=== PATIENT | female | born 1990 | race Caucasian/White ===

== ENCOUNTER 2018-09-21 20:37 | Outpatient (CLI) | payer MEDICAID ==
[~2018-09-21] VITALS: Ht 165.1 cm; Wt 67.5 kg
[2018-09-21 21:14] VITALS: BP 108/68; PULSE 83; RESP 15
[2018-09-21] MEDS ORDERED: PREN-19 PO (21:17)
--- NOTE | 2018-09-22 01:12 | PN ---
Triage Information Date/Time September 22, 2018 Reason for visit: Vag spotting / bleeding Weeks of Gestation 23w 4d /Para 3/2 Diabetes: none Hypertention: none Additional information Pt reports a mucousy d/c x 2 days with flecks of blood and vaginal itching. PMHx: none. PSHx: none. POBHx: x 2, ages 2 and 6. NKDA. Objective Vital Signs Date Temp Pulse Resp B/P (MAP) Pulse Ox O2 O2 Flow FiO2 Time Delivery Rate 09/21/18 98.6 83 15 108/68 Room Air 21:14 (81) Heart Rate: 150's Heart Rate Comments Seen on US, not on the tracing. Contractions: None Exam deferred Results/Medications Results 24 hrs Laboratory Tests Test 09/21/18 20:40 Urine Color STRAW Urine Clarity CLEAR Urine pH 5.0 Urine Specific [place] 1.005 Urine Ketones NEGATIVE Urine Nitrite NEGATIVE Urine Bilirubin NEGATIVE Urine Urobilinogen NEGATIVE Urine Leukocyte Esterase NEGATIVE Urine Microscopic RBC 0 Urine Microscopic WBC 0 Urine Hemoglobin 1+ H Urine Glucose NEGATIVE Urine Total Protein NEGATIVE Imaging Results EFW c/w 23w 3d, 593 grams.COMPLETE PLACENTA PREVIA. MELO normal. CX closed 2.5 cm. S1. Breech. Disposition: Discharge Assessment/Plan A: IUP at 23w 4d. Complete placenta previa. Vag infxn. P: As no active bleeding nor contractions pt is to be d/c'ed home. She has an appt at the clinic in a week but was told to call for an earlier appt to evaluate her for a vaginal infection. Pt is to observe strict pelvic rest and avoid any heavy lifting or other strenuous activity. DENG RUBY MD Sep 22, 2018 01:12
--- NOTE | 2018-09-22 05:28 | TRIAGE ---
OB Triage Datetime Report Generated by CPN: 09/22/2018 05:28 Datetime: 09/21/2018 21:55 Pain Assessment Pain Scale: 0 Pain Presence: None/Denies Pain Type: N/A Datetime: 09/21/2018 21:02 Heart Rate FHR Baseline Rate: 145 Monitor Mode: Doppler Comments: Baby audibly active Datetime: 09/21/2018 21:00 Time of Arrival: 09/21/2018 20:30 EGA: 23.3 Arrived By: Wheelchair Arrived From: Home Chief Complaint: c/o mucousy black discharge in am, vaginal itching x 2 days Movement: Present Contractions: Denies/Absent Rupture of Membranes: Denies Vaginal Bleeding: None Vaginal Discharge: Present Recent Sexual Intercouse: Denies Abdominal Trauma: Not Applicable Patient Complaints: Other Additional Patient Complaints: States came from [place] 3 wks ago Time Provider Notified: 09/21/2018 20:53 Provider Notified: Dr Shin Initial Plan: EFM,UA,EFW,CVL Datetime: 09/21/2018 20:49 Vaginal Exam Membrane Status: Intact
== END 2018-09-22 01:05 | disposition home or self-care (01) ==
LOC: OBT 20:37 → L-D 20:38 → OBT 09-22 01:05
PROVIDERS: ATTEND Obstetrics & Gynecology
DX: O44.02 Complete placenta previa NOS or without hemorrhage, second trimester (principal); Z3A.23 23 weeks gestation of pregnancy
CPT/HCPCS: 76815; 76817; 81001; Z7500; G0463

== ENCOUNTER 2018-11-08 07:09 | Inpatient (IN) | payer MEDICAID ==
[~2018-11-08] VITALS: Ht 162.6 cm; Wt 77.0 kg
[~2018-11-08 07:09] MED LIST: PREN-19 PO
--- NOTE | 2018-11-08 07:35 | TRIAGE ---
OB Triage Datetime Report Generated by CPN: 11/08/2018 07:35 Datetime: 11/08/2018 07:31 Maternal Assessment Level of Consciousness: Keenly Alert, Responsive DTR's/Clonus: DTRs 2+; No Clonus Headache: Denies Blurred Vision: No Respiratory Effort: Unlabored; Regular Rhythm; Equal Expansion Breath Sounds, Left: Clear and Equal Breath Sounds, Right: Clear and Equal Nausea/Vomiting: Denies RUQ Epigastric Pain: Denies Facial Edema: None Temperature Route: Axillary Fall Risk Assessment History of Falling: (0) No Secondary Diagnosis: (0) No Ambulatory Aid: (0) Bedrest/Nurse Assist IV Therapy: (0) No Gait: (0) Normal/Bedrest/Immobile Mental Status: (0) Oriented to Own Ability Fall Score: 0 Fall Risk Score Definition: No Risk: No action required Datetime: 11/08/2018 07:00 Time of Arrival: 11/08/2018 07:00 EGA: 30.2 Arrived By: Ambulatory Arrived From: Home Chief Complaint: 2 BLEEDING EPISODES THIS MORNING PT IS KNOWN PREVIA Movement: Present Contractions: Denies/Absent Rupture of Membranes: Denies Vaginal Discharge: Denies Recent Sexual Intercouse: Denies Abdominal Trauma: Not Applicable Patient Complaints: Other Time Provider Notified: 11/08/2018 07:15 Provider Notified: DR FINK Initial Plan: EFM,ALL DR FINK Datetime: 09/22/2018 00:55 Stage of : OB Triage Datetime: 09/22/2018 00:20 Stage of : OB Triage Datetime: 09/21/2018 23:33 Pain Assessment Pain Scale: 0 Pain Presence: None/Denies Pain Type: N/A Datetime: 09/21/2018 21:00 EGA: 23.3
[2018-11-08 07:37] VITALS: Ht 162.6 cm; Wt 77.0 kg
[2018-11-08 07:39] VITALS: BP 106/64; RESP 20
[2018-11-08] MEDS ORDERED: MAGNESIUM SULFATE 4 GM/100 ML 100 ML IV ONE (07:57)
--- NOTE | 2018-11-08 09:22 | HP ---
Date/Time of Note Date/Time of Note DATE: 11/08/18 TIME: 09:20 OB - History Hx of Present Free Text/Dictation 30 weeks IUP with complete previa started bleeding 4 hours before admission. Care: Good Care Ultrasounds: Normal mid trimester US Obstetrical Complications: Other (previa) Medical Complications: None Past Family/Social History * Past Medical, Surgical, Family and Obstetric Histories reviewed from chart. OB Admission Exam Vital Signs Vital Signs Vital Signs Date Temp Pulse Resp B/P (MAP) Pulse Ox O2 O2 Flow FiO2 Time Delivery Rate 11/08/18 20 106/64 Room Air 07:39 (78) Physical Exam HEENT: WNL Heart: Rhythm Normal Lungs: Clear, Equal Abdomen: WNL Extremities: Normal Reflexes: Normal Cervical Dilatation: None Effacement: 0% Station: Ballotable Membranes: Intact Heart Rate: 120's Accelerations: Accelerations Present Decelerations: No Decelerations Varibility: Moderate Contractions on Admission: None Last 72 hours Lab Results CBC & BMP 11/08/18 07:20 OB Assessment/Plan Reason for admission: vaginal bleeding Plan: Expectant Management (magnesium and beta methasone) SHON FINK MD Nov 08, 2018 09:22
[2018-11-08] MEDS: MAGNESIUM SULFATE 20 GM/500 ML 500 ML IV SCH ×2 (10:24→21:14)
[2018-11-08] MEDS: BETAMET NA PHOS/AC(6 MG/ML) 2 ML INJ SYG IM SCH (11:25)
[2018-11-08] MEDS: LACTATED RINGER'S 1,000 ML IV SCH (15:08)
[2018-11-08] MEDS ORDERED: ACETAMINOPHEN 325 MG TAB PO PRN (21:30)
[2018-11-09] MEDS: LACTATED RINGER'S 1,000 ML IV SCH ×3 (04:22→15:51)
[2018-11-09] MEDS: MAGNESIUM SULFATE 20 GM/500 ML 500 ML IV SCH ×2 (08:25→11:17)
--- NOTE | 2018-11-09 09:29 | QN ---
Documentation Comment DOING WELL NO BLEEDING VSS TRACING CATEGORY 1 CPM SECOND BETAMETHASONE TODAY D/C MAG TOMORROW SHON FINK MD Nov 09, 2018 09:29
[2018-11-09] MEDS: BETAMET NA PHOS/AC(6 MG/ML) 2 ML INJ SYG IM SCH (11:21)
[2018-11-09] MEDS: FERROUS SULFATE (EC) 325 MG TAB PO SCH (11:21)
[2018-11-09] MEDS: DOCUSATE SODIUM 100 MG CAP PO SCH (11:21)
[2018-11-09] MEDS: PRENATAL VITAMIN PO SCH (11:21)
[2018-11-10] MEDS: LACTATED RINGER'S 1,000 ML IV SCH ×3 (01:02→21:01)
[2018-11-10] MEDS: MAGNESIUM SULFATE 20 GM/500 ML 500 ML IV SCH (01:05)
[2018-11-10] MEDS: DOCUSATE SODIUM 100 MG CAP PO SCH (09:55)
[2018-11-10] MEDS: PRENATAL VITAMIN PO SCH (09:55)
[2018-11-10] MEDS: FERROUS SULFATE (EC) 325 MG TAB PO SCH (09:55)
--- NOTE | 2018-11-10 12:52 | QN ---
Documentation Comment no complaints no bleeding s/p magensium and beta methasone SHON FINK MD Nov 10, 2018 12:52
[2018-11-11] MEDS: LACTATED RINGER'S 1,000 ML IV SCH (07:25)
[2018-11-11] MEDS: DOCUSATE SODIUM 100 MG CAP PO SCH (08:52)
[2018-11-11] MEDS: PRENATAL VITAMIN PO SCH (08:52)
[2018-11-11] MEDS: FERROUS SULFATE (EC) 325 MG TAB PO SCH (08:52)
[2018-11-11] MEDS: NACL 0.9% 3 ML SYG IV SCH (16:32)
--- NOTE | 2018-11-12 02:14 | PN ---
Date/Time of Note Date/Time of Note DATE: 11/12/18 TIME: 02:10 OB Subjective Subjective Subjective Late entry note. Patient seen on 11/11/2018 patient seen and examined. She states good movement. She denies nausea, vomiting, shortness of breath, chest pain, abdominal pain between contractions, headache, visual changes, vaginal bleeding or LOF. OB Objective Objective Objective General: Patient appears well, alert and oriented, NAD, appropriate mood and affect ABD: gravid, soft, non-tender. Back: No CVA tenderness (B/L) LE: Mild edema. No clubbing, cyanosis, edema, thigh or calf tenderness bilaterally FHT: 130 bpm , moderate variability with acceleration, no deceleration-category I Contractions: None OB Assessment/Plan Other plan: 28 years old -0-0-2 with single intrauterine at 30 weeks and 5 days with a TYSON of 01/15/2019 with complete placenta previa and 2 episodes of vaginal bleeding - FHR: Category I - Contractions: None - Continuous EFM, toco - s/p magnesium sulfate and betamethasone - Cont in house observation DAVIN MEDINA Nov 12, 2018 02:14
--- NOTE | 2018-11-12 08:13 | QN ---
Documentation Comment doing well vss no bleeding spoke with Dr. Ha and we will have her walk tomorrow for 2-3 hours and if no bleeding will go home. If she bleeds will stay till 36 weeks explained to patient SHON FINK MD Nov 12, 2018 08:13
[2018-11-12] MEDS: FERROUS SULFATE (EC) 325 MG TAB PO SCH (09:21)
[2018-11-12] MEDS: DOCUSATE SODIUM 100 MG CAP PO SCH (09:21)
[2018-11-12] MEDS: PRENATAL VITAMIN PO SCH (09:21)
[2018-11-12] MEDS: NACL 0.9% 3 ML SYG IV SCH (09:25)
--- NOTE | 2018-11-12 15:23 | CONS ---
Assessment/Plan Assessment/Plan Hospital Course (Demo Recall) I have spoken to the mother with the help of an drainlayer and explained the about problems with 30 to 31-week gestational age premature baby, survival greater than 90% based on when the baby is delivered, risk of respiratory distress syndrome, ventilatory assistance, oxygen therapy, chronic lung disease and oxygen dependency, intercurrent infections, treatment with antibiotics, intraventricular hemorrhage, long-term neurodevelopmental problems with delayed milestones, feeding problems, low intelligence, school problems, cerebral palsy and special developmental follow-up needed after discharge, feeding problems with slow feeding, necrotizing enterocolitis, gastroesophageal reflux and general procedures done in NICU and general treatment plan and answered mother's questions and addressed her concerns. Mom seems to understand the problems related to prematurity and had appropriate questions and concerns that were addressed. Thank you very much for allowing me to take part in the care of this patient and will follow her and the baby as needed I have spent approximately 25 to 30 minutes in reviewing the chart, speaking to the mother with the help of an drainlayer, coordinating the care with ancillary services and dictating the consult note with most of the time spent [id number] in explaining the mother's related to prematurity and addressing her concerns. Consultation Date/Type/Reason Admit Date/Time Nov 08, 2018 at 07:15 Date of Consultation: Nov 12, 2018 Type of Consult consult on 28-year-old, 3, para 2, 0 mom admitted with history of vaginal bleeding secondary to placenta previa. Her bleeding is under control now. EDC is 01/15/2019. No labor. Given betamethasone 1 course on 11/08 and 11/09 and treated with magnesium sulfate till 11/10. No history of gestational diabetes or hypertension. Mom had adequate care. Reason for Consultation History of placenta previa with vaginal bleeding at 30 and 6/7 weeks gestational age . Date/Time of Note DATE: 11/12/18 TIME: 15:18 Past Medical History Home Meds Reported Medications Vit #76/Iron,Carb/FA (Prenatabs Rx Tablet) 1 Each Tablet, 1 EACH PO DAILY, TAB 09/21/18 Medications Current Medications Acetaminophen (Tylenol Tab) 650 mg Q6H PRN PO MILD PAIN(1-3)OR ELEVATED TEMP Last administered on 11/08/18at 21:58; Admin Dose 650 MG; Start 11/08/18 at 21:30 Prenat Multivit/ [place]/Iron/Folic Ac () 1 tab DAILY PO Last administered on 11/12/18 09:21; Admin Dose 1 TAB; Start 11/09/18 at 09:30 Ferrous Sulfate (Ferrous Sulfate (Ec)) 325 mg DAILY PO Last administered on 11/12/18 09:21; Admin Dose 325 MG; Start 11/09/18 at 09:30 Docusate Sodium (Colace) 100 mg DAILY PO Last administered on 11/12/18 09:21; Admin Dose 100 MG; Start 11/09/18 at 09:30 IV Flush (NS 3 ml) 3 ml Q8H and PRN adm IV Last administered on 11/12/18 09:25; Admin Dose 3 ML; Start 11/11/18 at 16:00 Allergies: Coded Allergies: No Known Allergy (Unverified , 09/21/18) Social History Smoking Status: Never smoker Exam/Review of Systems Exam Vitals Vital Signs Date Temp Pulse Resp B/P (MAP) Pulse Ox O2 O2 Flow FiO2 Time Delivery Rate 11/08/18 20 106/64 Room Air 07:39 (78) Intake and Output 11/11/18 11/11/18 11/12/18 1515:00 23:00 07:00 IntakeIntake Total 900 ml 800 ml OutputOutput Total 1400 ml 500 ml BalanceBalance -500 ml 300 ml Results Result Diagram: 11/08/18 0720 Results 24hrs Laboratory Tests Test 11/12/18 10:00 Urine Color STRAW Urine Clarity CLEAR Urine pH 7.0 Urine Specific [place] 1.011 Urine Ketones NEGATIVE Urine Nitrite NEGATIVE Urine Bilirubin NEGATIVE Urine Urobilinogen NEGATIVE Urine Leukocyte Esterase NEGATIVE Urine Hemoglobin NEGATIVE Urine Glucose NEGATIVE Urine Total Protein NEGATIVE Medications Medication Current Medications Acetaminophen (Tylenol Tab) 650 mg Q6H PRN PO MILD PAIN(1-3)OR ELEVATED TEMP Last administered on 11/08/18 21:58; Admin Dose 650 MG; Start 11/08/18 at 21:30 Prenat Multivit/ [place]/Iron/Folic Ac () 1 tab DAILY PO Last administered on 11/12/18 09:21; Admin Dose 1 TAB; Start 11/09/18 at 09:30 Ferrous Sulfate (Ferrous Sulfate (Ec)) 325 mg DAILY PO Last administered on 8/8/19at 09:21; Admin Dose 325 MG; Start 11/09/18 at 09:30 Docusate Sodium (Colace) 100 mg DAILY PO Last administered on 11/12/18 09:21; Admin Dose 100 MG; Start 11/09/18 at 09:30 IV Flush (NS 3 ml) 3 ml Q8H and PRN adm IV Last administered on 11/12/18 09:25; Admin Dose 3 ML; Start 11/11/18 at 16:00 ASHIA COLVIN MD Nov 12, 2018 15:23
[2018-11-13] MEDS: NACL 0.9% 3 ML SYG IV SCH (00:27)
[2018-11-13] MEDS: FERROUS SULFATE (EC) 325 MG TAB PO SCH (09:08)
[2018-11-13] MEDS: DOCUSATE SODIUM 100 MG CAP PO SCH (09:08)
[2018-11-13] MEDS: PRENATAL VITAMIN PO SCH (09:09)
--- NOTE | 2018-11-13 14:25 | QN ---
Documentation Comment doing well vss tracing category 1 will d/c home if no bleeding after walking for 3 hours SHON FINK MD Nov 13, 2018 14:25
--- NOTE | 2018-11-13 14:47 | DS ---
Date/Time of Note Date/Time of Note DATE: 11/13/18 TIME: 14:46 Discharge Summary Admission/Discharge Info Admit Date/Time Nov 08, 2018 at 07:15 Discharge Date/Time Discharge Diagnosis 30 weeks with placenta previa Patient Condition: Stable Hospital Course unremarkable Home Meds Reported Medications Vit #76/Iron,Carb/FA (Prenatabs Rx Tablet) 1 Each Tablet, 1 EACH PO DAILY, TAB 09/21/18 Primary Care Provider Care Physician No Primary SHON FINK MD Nov 13, 2018 14:46
== END 2018-11-13 17:44 | disposition home or self-care (01) | DRG 833 ==
LOC: L-D 07:09 → OBT 07:09 → L-D 07:15
PROVIDERS: ADMIT Obstetrics & Gynecology; ATTEND Obstetrics & Gynecology
DX: O44.13 Complete placenta previa with hemorrhage, third trimester (principal); Z3A.30 30 weeks gestation of pregnancy
CPT/HCPCS: 76815; 76818; 81003; 83735; 85025; 85610; 85730; 86592; 86850; 86900; 86901; 86920; G0463; J0702; J3475; J7120

== ENCOUNTER 2018-12-08 | Inpatient (IN) | payer MEDICAID ==
[~2018-12-08] VITALS: Ht 162.6 cm; Wt 75.6 kg
[2018-12-08 00:33] VITALS: Ht 162.6 cm; Wt 75.6 kg
[2018-12-08 00:34] VITALS: BP 100/64; PULSE 93; RESP 18
[2018-12-08] MEDS ORDERED: LACTATED RINGER'S 1,000 ML IV SCH ×2 (00:53→17:44)
[2018-12-08] MEDS ORDERED: CARBOPROST 250 MCG INJ IM PRN ×2 (01:00→18:00)
[2018-12-08] MEDS ORDERED: CEFAZOLIN 2 GM/50 ML (PMX) 50 ML IVPB SCH (01:00)
[2018-12-08] MEDS ORDERED: OXYTOCIN 30 UNITS/LR 500 ML IV PRN ×2 (01:00→18:00)
[2018-12-08] MEDS ORDERED: MISOPROSTOL 200 MCG TAB PR PRN ×2 (01:00→18:00)
[2018-12-08] MEDS ORDERED: METHYLERGONOVINE 0.2 MG INJ IM PRN ×2 (01:00→18:00)
[2018-12-08] MEDS ORDERED: morphine SULFATE/PF (10 MG/10 ML) INJ ONE (13:53)
[2018-12-08] MEDS ORDERED: OXYTOCIN 10 UNIT INJ ONE ×2 (13:53→14:20)
[2018-12-08] MEDS ORDERED: ONDANSETRON 4 MG INJ ONE (13:53)
[2018-12-08] MEDS ORDERED: PHENYLephrine 10 MG INJ ONE (14:22)
[2018-12-08] MEDS ORDERED: ONDANSETRON 4 MG INJ IV PRN (15:00)
[2018-12-08] MEDS ORDERED: KETOROLAC 30 MG INJ IV PRN (15:00)
[2018-12-08] MEDS ORDERED: DIPHENHYDRAMINE 50 MG INJ IV PRN (15:00)
[2018-12-08] MEDS ORDERED: NALOXONE (0.4 MG/ML) INJ IV PRN (15:00)
[2018-12-08] MEDS ORDERED: morphine 2 MG INJ IV PRN (15:00)
[2018-12-08 17:30] VITALS: BP 97/55; PULSE 61; RESP 16
[2018-12-08] MEDS ORDERED: OXYTOCIN 30 UNITS/LR 500 ML IV SCH (17:44)
[2018-12-08] MEDS ORDERED: NA PHOSPHATE/BIPHOS 133 ML ENEMA PR PRN (18:00)
[2018-12-08] MEDS ORDERED: HYDROCODONE/APAP (5/325) TAB PO PRN (18:00)
[2018-12-08] MEDS ORDERED: NACL 0.9% 3 ML SYG IV SCH (18:00)
[2018-12-08] MEDS ORDERED: LANOLIN HPA 1 PKT TOP PRN (18:00)
[2018-12-08 19:40] VITALS: BP 90/58; PULSE 78; RESP 18
[2018-12-08 23:40] VITALS: BP 92/51; PULSE 71; RESP 18
[2018-12-09] MEDS ORDERED: LACTATED RINGER'S 1,000 ML IV SCH (03:30)
[2018-12-09 03:40] VITALS: BP 101/60; PULSE 75; RESP 19
[2018-12-09 08:00] VITALS: BP 95/56; PULSE 82; RESP 18
[2018-12-09 12:00] VITALS: BP 97/60; PULSE 91; RESP 16
[2018-12-09] MEDS: IBUPROFEN 800 MG TAB PO SCH ×2 (14:15→21:55)
[2018-12-09 16:00] VITALS: BP 114/65; PULSE 95; RESP 18
[2018-12-09 19:40] VITALS: BP 108/65; PULSE 91; RESP 18
[2018-12-10 03:40] VITALS: BP 98/59; PULSE 72; RESP 19
[2018-12-10] MEDS: IBUPROFEN 800 MG TAB PO SCH ×3 (05:39→21:18)
[2018-12-10 07:45] VITALS: BP 97/61; PULSE 80; RESP 18
[2018-12-10 15:50] VITALS: BP 104/67; PULSE 82; RESP 16
[2018-12-10 20:30] VITALS: BP 101/62; PULSE 74; RESP 18
[2018-12-11 03:22] VITALS: BP 96/52; PULSE 63; RESP 18
[2018-12-11] MEDS: IBUPROFEN 800 MG TAB PO SCH (05:31)
[2018-12-11 08:00] VITALS: BP 98/61; PULSE 75; RESP 16
[2018-12-11] MEDS ORDERED: DIPHTH/TET/ACEL PERTUSS (ADULT) 0.5 ML VIAL IM* ONE (09:00)
[2018-12-11] MEDS ORDERED: MEASLES,MUMPS,RUBELLA VACCINE INJ SC* ONE (09:00)
== END 2018-12-11 15:03 | disposition home or self-care (01) | DRG 786 ==
LOC: L-D → OBT → L-D 00:50 → PP1 17:27
PROVIDERS: ADMIT Obstetrics & Gynecology; ATTEND Obstetrics & Gynecology
PROC: 10D00Z1 Extraction of Products of Conception, Low, Open Approach (ICD-10-PCS; principal; 2018-12-08 16:00)
DX: O60.13X0 Preterm labor second trimester with preterm delivery third trimester, not applicable or unspecified (principal); O44.13 Complete placenta previa with hemorrhage, third trimester; Z3A.33 33 weeks gestation of pregnancy; Z37.0 Single live birth
CPT/HCPCS: 85025; 85610; 85730; 86592; 86850; 86900; 86901; 86920; 87340; 90715; 99464; G0463; J0690; J1200; J1885; J2274; J2370; J2405; J2590; J7120